=== PATIENT | female | born 1980 | race Caucasian/White ===

== ENCOUNTER 2022-05-11 14:57 | Emergency (ER) | payer MEDICAID ==
[~2022-05-11] VITALS: Ht 154.9 cm; Wt 72.6 kg
[2022-05-11] MEDS ORDERED: KETOROLAC TROMETHAMINE 30 MG INJ ONE (16:12)
[2022-05-11] MEDS ORDERED: KETOROLAC TROMETHAMINE 30 MG INJ IM ONE (16:15)
[2022-05-11] MEDS ORDERED: CYCL5TAB PO (16:55)
[2022-05-11 17:05] VITALS: BP 114/71
== END 2022-05-11 16:55 | disposition home or self-care (01) ==
LOC: ER 14:57
DX: M54.2 Cervicalgia (principal)
CPT/HCPCS: 99283; 96372; J1885; A4663

== ENCOUNTER 2022-09-10 09:15 | Emergency (ER) | payer MEDICAID ==
[~2022-09-10] VITALS: Ht 154.9 cm; Wt 77.1 kg
[~2022-09-10 09:15] MED LIST: CYCL5TAB PO
--- NOTE | 2022-09-10 10:00 | NUR ---
court interpreter [id number] ([place]) notified.
[2022-09-10] MEDS ORDERED: [UNRECOGNIZED DRUG - OTHER] (10:01)
--- NOTE | 2022-09-10 10:01 | NUR ---
Patient can not recall exact names and dosages of her home medicines.
[2022-09-10 10:13] LABS: HEMATOCRIT 35.1 % (31.2-41.9); MEAN CORPUSCULAR HEMOGLOBIN 25.5 uug (24.7-32.8); MEAN CORPUSCULAR VOLUME 79.4 fL (75.5-95.3); PLATELET COUNT (AUTO) 296 K/uL (179-408)
[2022-09-10 10:23] LABS: CARBON DIOXIDE 26 mmol/L (21-32); CHLORIDE 104 mmol/L (98-107); CREATININE 0.7 mg/dL (0.6-1.3); GLUCOSE 102 mg/dL (74-106); POTASSIUM 4.1 mmol/L (3.5-5.1); UREA NITROGEN, BLOOD 11 mg/dL (7-18)
[2022-09-10] MEDS ORDERED: IBUPROFEN 600 MG TABLET PO ONE (13:00)
--- NOTE | 2022-09-10 13:11 | NUR ---
Patient discharged to home in stable condition. Written and verbal after care instructions given. Patient verbalizes understanding of instructions. Stressed follow up or return to ER for worsening s/s.
[2022-09-10 13:13] VITALS: BP 124/78
== END 2022-09-10 13:00 | disposition home or self-care (01) ==
LOC: ER 09:15
DX: R07.89 Other chest pain (principal); I25.10 Atherosclerotic heart disease of native coronary artery without angina pectoris
CPT/HCPCS: 36415; 71045; 84484; 85025; 93005; 93307; A4663

== ENCOUNTER 2024-05-25 18:22 | Emergency (ER) | payer MEDICAID, OTHER ==
[~2024-05-25] VITALS: Ht 154.9 cm; Wt 80.7 kg
[~2024-05-25 18:22] MED LIST changes: +[UNRECOGNIZED DRUG - OTHER]
[2024-05-25 19:02] LABS: BASOPHILS # (AUTO) 0.1 K/UL (0.0-0.2); BASOPHILS % (AUTO) 0.6 % (0.0-2.0); EOSINOPHILS # (AUTO) 0.1 K/uL (0.0-0.7); EOSINOPHILS % (AUTO) 0.9 % (0.0-7.0); HEMATOCRIT 30.8 % (31.2-41.9); LYMPHOCYTES # (AUTO) 3.1 K/uL (0.8-4.8); LYMPHOCYTES % (AUTO) 34.1 % (20.5-51.5); MEAN CORPUSCULAR HEMOGLOBIN 25.9 uug (24.7-32.8); MEAN CORPUSCULAR HGB CONC 33 g/dL (32.3-35.6); MEAN CORPUSCULAR VOLUME 79.8 fL (75.5-95.3); MONOCYTES # (AUTO) 0.5 K/uL (0.1-1.30); MONOCYTES % (AUTO) 5.8 % (0.0-11.0); NEUTROPHILS # (AUTO) 5.3 K/uL (1.8-8.9); NEUTROPHILS % (AUTO) 58.6 % (38.5-71.5); PLATELET COUNT (AUTO) 320 K/uL (179-408); RED BLOOD CELL COUNT(AUTO) 3.86 MIL/uL (3.63-4.92); RED CELL DISTRIBUTION WIDTH 14.4 % (12.3-17.7); WHITE BLOOD COUNT (AUTO) 9.1 K/uL (3.8-11.8)
[2024-05-25 19:05] LABS: DIFFERENTIAL COMMENT 1
[2024-05-25 19:10] LABS: CALCIUM 8.8 mg/dL (8.5-10.1); CARBON DIOXIDE 27 mmol/L (21-32); CHLORIDE 104 mmol/L (98-107); CREATININE 0.6 mg/dL (0.6-1.3); GLUCOSE 136 mg/dL (74-106); POTASSIUM 3.8 mmol/L (3.5-5.1); SODIUM SERUM 138 mmol/L (136-145); UREA NITROGEN, BLOOD 11 mg/dL (7-18)
[2024-05-25 19:26] LABS: PREGNANCY TEST SERUM QUAN < 1 miul/L (0-6)
[2024-05-25] MEDS ORDERED: NORE5TAB3 PO (21:00)
[2024-05-25 21:22] VITALS: BP 130/81; TEMP 98.6; O2SAT 99
== END 2024-05-25 21:22 | disposition home or self-care (01) ==
LOC: ER 18:23
DX: N92.0 Excessive and frequent menstruation with regular cycle (principal); R10.2 Pelvic and perineal pain; I25.10 Atherosclerotic heart disease of native coronary artery without angina pectoris; Z79.3 Long term (current) use of hormonal contraceptives
CPT/HCPCS: 36415; 85025; A4606; A4663